=== PATIENT | male | born 1990 | race Caucasian/White ===

== ENCOUNTER 2016-12-06 13:13 | Emergency (ER) | payer OTHER ==
[2016-12-06 13:18] VITALS: BP 121/79; TEMP 98.2; BMI 22.3
[2016-12-06 14:05] LABS: BASOPHILS # (AUTO) 0.1 K/uL (0-0.2); BASOPHILS % (AUTO) 0.4 % (0.0-3.0); EOSINOPHILS # (AUTO) 0.2 K/ul (0.0-0.7); EOSINOPHILS % (AUTO) 1.2 % (0.0-7.0); HEMATOCRIT 39.8 % (42.0-52.0); HEMOGLOBIN 13.6 g/dl (14.0-18.0); IMMATURE GRANULOCYTE % (AUTO) 0.4 % (0.0-5.0); LYMPHOCYTES # (AUTO) 1.4 K/uL (0.60-3.4); LYMPHOCYTES % (AUTO) 10.5 (10.0-50.0); MEAN CORPUSCULAR HEMOGLOBIN 30.8 pg (27.0-31.0); MEAN CORPUSCULAR HGB CONC 34.2 (31.8-35.4); MEAN CORPUSCULAR VOLUME 90.2 fl (80.0-94.0); MONOCYTES # (AUTO) 1.3 K/uL (0.4-2.0); NEUTROPHILS # (AUTO) 10.3 K/ul (2.0-6.9); NEUTROPHILS % (AUTO) 77.5; PLATELET COUNT 261 10^3/uL (140-440); RED BLOOD COUNT 4.41 10^6/ul (4.70-6.10); WHITE BLOOD COUNT 13.23 K/ul (4.2-10.2)
[2016-12-06 14:30] LABS: ALBUMIN 3.7 g/dL (3.4-5.0); ALBUMIN/GLOBULIN RATIO 1.06; ANION GAP 12.2; BILIRUBIN,TOTAL 0.54 mg/dL (0.00-1.20); BUN/CREATININE RATIO 12.79; CALCIUM 9.2 mg/dL (8.2-10.2); CREATININE 0.86 mg/dL (0.60-1.10); POTASSIUM 4.2 mmol/L (3.5-5.1); TOTAL PROTEIN 7.2 g/dL (6.4-8.2)
--- NOTE | 2016-12-06 14:51 | US ---
EXAM: Ultrasound scrotum 12/06/2016 HISTORY: Left pain and swelling COMPARISON: None. FINDINGS: The right testicle measures 5.1 x 3.2 x 2.8 cm. The left testicle measures 4.0 x 3.1 x 3. 3 cm. Normal arterial flow within both testicles. There is no evidence of testicular torsion. No evidence of intratesticular mass. Small right epididymal cyst measuring 2 mm incidentally noted. Hypervascular appearance of the left epididymis. The appearance is suggestive of epididymitis. Prominent venous flow is present adjacent to the left epididymis. Unilateral left varicocele not ex cluded. IMPRESSION: Hypervascular left epididymis suggestive of epididymitis. Coexisting varicocele not exc luded. No evidence of intratesticular mass or torsion.
[2016-12-06 14:56] LABS: BILIRUBIN,URINE Negative (NEGATIVE); KETONES,URINE Negative (NEGATIVE); LEUKOCYTE ESTERASE ,URINE 1+ (NEGATIVE); NITRITE,URINE Negative (NEGATIVE); PROTEIN,URINE 2+ (NEGATIVE); URINE, BLOOD 3+ (NEGATIVE)
[2016-12-06 15:04] LABS: ADD URINE MICROSCOPIC YES
[2016-12-06 15:06] LABS: BACTERIA,URINE TRACE (NOT PRESENT)
--- NOTE | 2016-12-06 15:15 | ED.PDOC ---
General ED Provider: Dr. MICHEAL WELLS Chief Complaint: Urinary Problem Stated Complaint: left testicle pain Time Seen by Physician: 01:30 (negative trauma) Mode of Arrival: Walk-In Information Source: Patient Exam Limitations: No limitations Primary Care Provider: WALTER KAPLAN Nursing and Triage Documentation Reviewed and Agree: Yes Complaint Exam - Complaint/Exam Patient Complains of: Reports: Scrotal pain, Scrotal swelling Onset/Duration: 2 days Symptoms Are: Still present Timing: Constant Initial Severity: Mild Current Severity: Mild Location of Pain: Reports: Left, Testicle Character: Reports: Dull Aggravating: Reports: Straining, Palpation Alleviating: Reports: Scrotal elevation Associated Signs and Symptoms: Denies: Diaphoresis, Back pain, Fever, Hematuria , Dysuria, Constipation, Blood in stool, Rectal pain, Appetite change, Nausea, Vomiting, Penile swelling, Penile discharge, Decreased urine output, Increased urine frequency, Increased thirst, Decreased activity, Lethargy, Scrotal pain, Scrotal swelling, Abdominal Pain Testicular Torsion Risk Factors: Reports: None Surgical Obstruction Risk Factors: Reports: None Related Surgical History: Reports: None Abdominal Findings: Present: None Genitalia Exam: Present: Scrotal swelling (left sided only) Differential Diagnoses: Epididymitis Review of Systems - Review Of Systems Constitutional: Reports: No symptoms Eyes: Reports: No symptoms Ears, Nose, Mouth, Throat: Reports: No symptoms Respiratory: Reports: No symptoms Cardiac: Reports: No symptoms GI: Reports: No symptoms : Reports: Other (l edema pain) Musculoskeletal: Reports: No symptoms Skin: Reports: No symptoms Neurological: Reports: No symptoms Endocrine: Reports: No symptoms Hematologic/Lymphatic: Reports: No symptoms All Other Systems: Reviewed and Negative Past Medical History - Past Medical History Previously Healthy: Yes Endocrine: Reports: None Cardiovascular: Reports: None Respiratory: Reports: None Hematological: Reports: None Gastrointestinal: Reports: None Genitourinary: Reports: None Neuro/Psych: Reports: None Musculoskeletal: Reports: None Cancer: Reports: None - Surgical History General Surgical History: Reports: None - Family History Family History: Reports: None - Social History Smoking Status: Current every day smoker, Heavy tobacco smoker Hx Substance Use: No Alcohol Screening: None Physical Exam - Physical Exam Appearance: Well-appearing, No pain distress, Well-nourished Eyes: SAURABH, EOMI, Conjunctiva clear ENT: Ears normal, Nose normal, Oropharynx normal Respiratory: Airway patent, Breath sounds clear, Breath sounds equal, Respirations nonlabored Cardiovascular: RRR, Pulses normal, No rub, No murmur GI/: No masses (swollen left testicle ), Bowel sounds normal, No Organomegaly Musculoskeletal: Normal strength, ROM intact, No edema, No calf tenderness Skin: Warm, Dry, Normal color Neurological: Sensation intact, Motor intact, Reflexes intact, Cranial nerves intact, Alert, Oriented Psychiatric: Affect appropriate, Mood appropriate Critical Care Note - Critical Care Note Total Time (mins): 0 Course - Course Hematology/Chemistry: 12/06/16 13:57 12/06/16 13:57 Orders, Labs, Meds: Lab Review 12/06/16 12/06/16 13:57 14:15 WBC 13.23 H RBC 4.41 L Hgb 13.6 L Hct 39.8 L MCV 90.2 MCH 30.8 MCHC 34.2 RDW Coeff of Yunior 12.2 Plt Count 261 Immature Gran % (Auto) 0.4 Neut % (Auto) 77.5 Lymph % (Auto) 10.5 [place] % (Auto) 10.0 Eos % (Auto) 1.2 Baso % (Auto) 0.4 Immature Gran # (Auto) 0.1 Neut # 10.3 H Lymph # 1.4 [place] # 1.3 Eos # 0.2 Baso # 0.1 Sodium 143 Potassium 4.2 Chloride 108 H Carbon Dioxide 27 Anion Gap 12.2 BUN 11 Creatinine 0.86 Estimated GFR (MDRD) 108.00 BUN/Creatinine Ratio 12.79 Glucose 81 Calcium 9.2 Total Bilirubin 0.54 AST 12 L ALT 10 L Alkaline Phosphatase 63 Total Protein 7.2 Albumin 3.7 Globulin 3.5 Albumin/Globulin Ratio 1.06 Urine Color Yellow Urine Clarity Cloudy Urine pH 7.0 Ur Specific [place] 1.025 Urine Protein 2+ Urine Glucose (UA) Negative Urine Ketones Negative Urine Blood 3+ Urine Nitrite Negative Urine Bilirubin Negative Urine Urobilinogen 0.2 Ur Leukocyte Esterase 1+ Urine Microscopic RBC 20-30 Urine Microscopic WBC 10-20 Ur Squamous Epith Cells 0-2 Urine Bacteria Trace Orders Category Date Time Status CBC W/ AUTO DIFF Stat LAB 12/06/16 13:57 Completed COMPREHENSIVE METABOLIC PANEL Stat LAB 12/06/16 13:57 Completed URINALYSIS C & S IF INDICATED Stat LAB 12/06/16 14:15 Completed URINE CULTURE Stat LAB 12/06/16 15:05 Received ULTRASOUND SCROTUM [U/S SCROTUM] Stat RADS 12/06/16 13:52 Completed Vital Signs: Temp Pulse Resp BP Pulse Ox 12/06/16 13:14 98.2 F 108 H 18 121/79 98 Departure - Departure Time of Disposition: 15:16 Disposition: HOME SELF-CARE Discharge Problem: Epididymitis Instructions: Epididymitis (ED), Scrotal Pain (ED) Condition: Good Pt referred to PMD for follow-up: No Additional Instructions: Please call your Family Physician as soon as possible to schedule a follow-up appointment. Allergies/Adverse Reactions: Allergies Penicillins Adverse Reaction (Verified 12/06/16 13:18) Sulfa (Sulfonamide Antibiotics) Adverse Reaction (Verified 12/06/16 13:18) Home Medications: Ambulatory Orders 1 [No Reported Medications] 12/06/16 Disposition Discussed With: Patient
== END 2016-12-06 15:24 | disposition home or self-care (01) ==
LOC: ED 13:13
DX: N45.1 Epididymitis (principal); R31.9 Hematuria, unspecified; D64.9 Anemia, unspecified; F17.210 Nicotine dependence, cigarettes, uncomplicated
CPT/HCPCS: 36415; 80053; 81001; 85025; 87086; 99283

== ENCOUNTER 2017-11-22 19:07 | Emergency (ER) ==
[2017-11-22 19:16] VITALS: BP 118/75; TEMP 98; BMI 21.6
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
== END 2017-11-22 20:15 | disposition left against medical advice (07) ==
LOC: ED 19:07
DX: S01.511A Laceration without foreign body of lip, initial encounter (principal); S01.512A Laceration without foreign body of oral cavity, initial encounter; S02.2XXA Fracture of nasal bones, initial encounter for closed fracture; V89.2XXA Person injured in unspecified motor-vehicle accident, traffic, initial encounter; F17.210 Nicotine dependence, cigarettes, uncomplicated
CPT/HCPCS: 99281

== ENCOUNTER 2018-01-07 12:03 | Emergency (ER) ==
[2018-01-07 12:03] VITALS: BMI 21.6
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
[2018-01-07] MEDS ORDERED: HALDOL IM STA (12:12)
[2018-01-07 12:16] VITALS: BP 143/56; TEMP 98.7
== END 2018-01-07 18:00 | disposition home or self-care (01) ==
LOC: ED 12:03
DX: T50.901A Poisoning by unspecified drugs, medicaments and biological substances, accidental (unintentional), initial encounter (principal); R41.82 Altered mental status, unspecified; R06.02 Shortness of breath; R45.1 Restlessness and agitation; F17.210 Nicotine dependence, cigarettes, uncomplicated
CPT/HCPCS: 36415; 80053; 80307; 84443; 85025; 93005; 93010; 96372; 99283

== ENCOUNTER 2018-01-12 19:56 | Emergency (ER) ==
[2018-01-12 19:58] VITALS: BMI 21.6
[2018-01-12 20:01] VITALS: BP 123/78; TEMP 98
--- NOTE | 2018-01-12 20:22 | ED.PDOC ---
General ED Provider: Dr. KIERAN STEELE Chief Complaint: Rectal Pain Stated Complaint: Patient is 27 year old male who complains of rectal pain and spasm. Denies any rectal intercourse. Denies any Melena or Hematochezia Time Seen by Physician: 20:20 Mode of Arrival: Walk-In Information Source: Patient Primary Care Provider: WALTER KAPLAN Nursing and Triage Documentation Reviewed and Agree: Yes Does patient meet sepsis criteria?: No System Inflammatory Response Syndrome: Not Applicable Sepsis Protocol: For patient's 13 years and over: Temp is 96.8 and below OR 101 and greater Pulse >90 BPM Resp >20/minute Acutely Altered Mental Status Are patient's symptoms suggestive of a new infection, such as: -Pneumonia -Skin, Soft Tissue -Endocarditis -UTI -Bone, Joint Infection -Implantable Device -Acute Abdominal Infection -Wound Infection -Meningitis -Blood Stream Catheter Infection -Unknown Review of Systems - Review Of Systems Constitutional: Reports: No symptoms Eyes: Reports: No symptoms Ears, Nose, Mouth, Throat: Reports: No symptoms Respiratory: Reports: No symptoms Cardiac: Reports: No symptoms GI: Reports: Other (recal pain ) : Reports: No symptoms Musculoskeletal: Reports: No symptoms Skin: Reports: No symptoms Neurological: Reports: No symptoms Endocrine: Reports: No symptoms Hematologic/Lymphatic: Reports: No symptoms All Other Systems: Reviewed and Negative Past Medical History - Past Medical History Previously Healthy: Yes Endocrine: Reports: None Cardiovascular: Reports: None Respiratory: Reports: None Hematological: Reports: None Gastrointestinal: Reports: None Genitourinary: Reports: None Neuro/Psych: Reports: None Musculoskeletal: Reports: None, Other (nasal fracture) Cancer: Reports: None - Surgical History General Surgical History: Reports: None - Family History Family History: Reports: None - Social History Smoking Status: Current every day smoker, Heavy tobacco smoker Hx Substance Use: Yes (MARIJUANA) Alcohol Screening: Occasionally - Immunizations Tetanus Shot up to Date: No Physical Exam - Physical Exam Appearance: Well-appearing, No pain distress, Well-nourished Eyes: SAURABH, EOMI, Conjunctiva clear ENT: Ears normal, Nose normal, Oropharynx normal Respiratory: Airway patent, Breath sounds clear, Breath sounds equal, Respirations nonlabored Cardiovascular: RRR, Pulses normal, No rub, No murmur GI/: Soft, No masses, Bowel sounds normal, No Organomegaly Musculoskeletal: Normal strength, ROM intact, No edema, No calf tenderness Skin: Warm, Dry, Normal color Neurological: Sensation intact, Motor intact, Reflexes intact, Cranial nerves intact, Alert, Oriented Psychiatric: Affect appropriate, Mood appropriate Critical Care Note - Critical Care Note Total Time (mins): 0 Course - Course Orders, Labs, Meds: Lab Review 01/12/18 20:15 Stl Occult Blood (IFOB) Negative Stool Occult Blood #2 No specimen received Stool Occult Blood #3 No specimen received Orders Category Date Time Status GUAIAC [OCCULT BLOOD, STOOL] Stat LAB 01/12/18 20:15 Completed Vital Signs: Temp Pulse Resp BP Pulse Ox 01/12/18 19:58 98.0 F 84 16 123/78 97 Departure - Departure Time of Disposition: 20:30 Disposition: HOME SELF-CARE Discharge Problem: Rectal pain Instructions: Rectal Pain (ED) Condition: Stable Pt referred to PMD for follow-up: Yes IPMP verified?: No Additional Instructions: Use Hemorrhoidal suppositories OTC for pain Allergies/Adverse Reactions: Allergies Penicillins Adverse Reaction (Verified 01/12/18 20:01) Sulfa (Sulfonamide Antibiotics) Adverse Reaction (Verified 01/12/18 20:01) Rash Home Medications: Ambulatory Orders 1 [No Reported Medications] 12/06/16 Disposition Discussed With: Patient
== END 2018-01-12 20:37 | disposition home or self-care (01) ==
LOC: ED 19:56
DX: K62.89 Other specified diseases of anus and rectum (principal); F17.210 Nicotine dependence, cigarettes, uncomplicated
CPT/HCPCS: 82272; 99283